=== PATIENT | female | born 1960 | race Caucasian/White ===

== ENCOUNTER 2023-10-28 09:58 | Day surgery (SDC) | payer OTHER ==
[~2023-10-28] VITALS: Ht 162.6 cm; Wt 106.6 kg
[~2023-10-28 09:58] MED LIST: ALBU2SYR21 PO; CYCL10TA79 PO; HUMSLIDE SUBQ; HYDR-4004 PO; IBUP-974 PO; INSU100S55 SC; LISI20TA29 PO; MEDR150S20 IH; METO100T23 PO; OMEP40EC23 PO; PIOG-4 PO; [UNRECOGNIZED DRUG - CODE] PO
[2023-10-28] MEDS ORDERED: SEVOFLURANE 250 ML BTL INH ONE (13:00)
[2023-10-28] MEDS ORDERED: fentaNYL citrate 0.05 MG/ML VIAL ONE ×2 (13:07→13:43)
[2023-10-28] MEDS ORDERED: MIDAZOLAM 2 MG/2 ML VIAL ONE (13:07)
[2023-10-28] MEDS ORDERED: PROPOFOL 200 MG/20 ML VIAL IV ONE ×2 (13:28)
[2023-10-28] MEDS ORDERED: LIDOCAINE MPF 2% 100 MG/5 ML VIAL INJ ONE (13:28)
[2023-10-28] MEDS ORDERED: SUCCINYLCHOLINE CHLORIDE 200 MG/10 ML VIAL IVP ONE (13:28)
[2023-10-28] MEDS ORDERED: DEXAMETHASONE 4 MG/ML VIAL ONE ×2 (13:28)
[2023-10-28] MEDS ORDERED: ONDANSETRON 4 MG/2 ML VIAL ONE ×2 (13:28)
[2023-10-28] MEDS: BUPIVACAINE-MPF 0.25% 30 ML VIAL INJ ONE (13:35)
[2023-10-28] MEDS: LIDOCAINE/EPI 1% 1:100000 20 ML VIAL INJ ONE (13:35)
[2023-10-28] MEDS ORDERED: HYDROGEN PEROXIDE 3% 240 ML BTL TP ONE (13:38)
[2023-10-28] MEDS ORDERED: KETOROLAC 30 MG/ML VIAL ONE (13:44)
[2023-10-28] MEDS ORDERED: ePHEDrine 50 MG/ML VIAL ONE (13:53)
== END 2023-10-28 15:53 | disposition home or self-care (01) ==
LOC: MDS 09:58 → MMU 09:59 → MDS 15:53
PROVIDERS: ATTEND Surgery
DX: K61.1 Rectal abscess (principal); I20.9 Angina pectoris, unspecified; F41.9 Anxiety disorder, unspecified; M19.90 Unspecified osteoarthritis, unspecified site; J44.9 Chronic obstructive pulmonary disease, unspecified; E11.9 Type 2 diabetes mellitus without complications; F32.A Depression, unspecified; K21.9 Gastro-esophageal reflux disease without esophagitis; Z90.49 Acquired absence of other specified parts of digestive tract; Z90.710 Acquired absence of both cervix and uterus; Z88.1 Allergy status to other antibiotic agents; Z88.2 Allergy status to sulfonamides; Z79.899 Other long term (current) drug therapy; Z98.890 Other specified postprocedural states
CPT/HCPCS: 46020; 46275; 71045; 82948; 93005; J0330; J1100; J1885; J2001; J2250; J2405; J2704; J3010; J3490